=== PATIENT | male | born 1985 | race Caucasian/White ===

== ENCOUNTER 2016-11-14 22:25 | Emergency (ER) | payer MEDICAID ==
[~2016-11-14] VITALS: Ht 177.8 cm; Wt 77.3 kg
[2016-11-14 22:33] VITALS: Ht 177.8 cm; Wt 77.3 kg
[2016-11-14] MEDS ORDERED: ACETAMINOPHEN 325/HYDROC 7.5 15 ML CUP PO ONE (23:00)
[2016-11-15] MEDS ORDERED: IBUP800T25 PO (00:23)
[2016-11-15] MEDS ORDERED: METH-70 PO (00:23)
[2016-11-15] MEDS ORDERED: HYDR-902 PO (00:23)
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
[2016-11-15 01:24] VITALS: BP 134/77; PULSE 73; RESP 18
== END 2016-11-15 01:24 | disposition home or self-care (01) ==
LOC: E/R 22:25
DX: S16.1XXA Strain of muscle, fascia and tendon at neck level, initial encounter (principal); R40.2252 Coma scale, best verbal response, oriented, at arrival to emergency department; R40.2362 Coma scale, best motor response, obeys commands, at arrival to emergency department; R40.2142 Coma scale, eyes open, spontaneous, at arrival to emergency department; V49.40XA Driver injured in collision with unspecified motor vehicles in traffic accident, initial encounter
CPT/HCPCS: 72040; Z7502; Z7610

== ENCOUNTER 2017-05-15 12:02 | Emergency (ER) | payer MEDICAID ==
[~2017-05-15] VITALS: Ht 170.2 cm; Wt 78.0 kg
[~2017-05-15 12:02] MED LIST: HYDR-902 PO; IBUP800T25 PO; METH750T93 PO
[2017-05-15 12:03] VITALS: Ht 170.2 cm; Wt 78.0 kg
[2017-05-15] MEDS ORDERED: IBUP-1542 PO (12:57)
--- NOTE | 2017-05-15 16:25 | ERD ---
ER Documentation Chief Complaint Date/Time DATE: 05/15/17 TIME: 16:19 Chief Complaint chest pain x 3 days HPI 31-year-old male complaining of chest pain 3 days. Patient stated the pain had gradual onset, feels pressure-like. Pain is constant. He has associated shortness of breath. Patient states that he does feel anxious at times. Patient also complaining of left forearm and left wrist pain for several months. 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 The pain is worse with certain movements. Denies fever or chills. Denies injury. ROS All systems reviewed and are negative except as per history of present illness. Medications Home Meds Active Scripts Ibuprofen* (Motrin*) 600 Mg Tab, 600 MG PO Q6H Y for PAIN AND OR ELEVATED TEMP, #30 TAB Prov:ANTOINETTE WALLACE. BEAM SAW OPERATOR 05/15/17 Hydrocodone/Acetaminophen ([place] 10-325 Tablet) 1 Each Tablet, 1 TAB PO Q6H Y for PAIN, #20 TAB Prov:KELLIE GARZASTJOSE ANGELS A. DO 11/15/16 Methocarbamol* (Robaxin*) 750 Mg Tablet, 750 MG PO TID, #30 TAB Prov:LEKKOS,APOSTOLOS A. DO 11/15/16 Ibuprofen* (Motrin*) 800 Mg Tab, 800 MG PO Q6H Y for PAIN AND OR ELEVATED TEMP, #30 TAB Prov:LEKKOS,APOSTOLOS A. DO 11/15/16 Allergies Allergies: Coded Allergies: No Known Allergy (Unverified , 11/14/16) PMhx/Soc History of Surgery: No Anesthesia Reaction: No Hx Neurological Disorder: No Hx Respiratory Disorders: No Hx Cardiac Disorders: No Hx Psychiatric Problems: No Hx Miscellaneous Medical Probl: No Hx Alcohol Use: Yes (occasionally) Hx Substance Use: No Hx Tobacco Use: No Smoking Status: Never smoker Physical Exam Vitals Vital Signs Date Time Temp Pulse Resp B/P Pulse Ox O2 Delivery O2 Flow Rate FiO2 05/15/17 12:03 98.6 82 18 136/75 98 Physical Exam General: Well-developed, well-nourished, conscious and coherent, in no distress Skin: Warm and dry without rash, good texture and turgor Head: Normocephalic without evidence of trauma Eyes: Sclera and conjunctivae normal; pupils equal, round, and reactive to light; extraocular movements are intact Chest: Normal AP diameter. Good expansion without retractions. Nontender. Lungs are clear to auscultate bilaterally with good tidal volume. Anterior chest wall tenderness on palpation. Heart: Regular rate and rhythm. No murmur, rub, or gallops heard Extremities: Full range of motion. Good strength bilaterally. No clubbing, cyanosis, or edema. Peripheral pulses are intact. Sensation intact. Slight tenderness at the ulnar aspect of the right wrist, and proximal lateral left forearm. Neuro: Alert and oriented 4, GCS 15. Cranial nerves grossly intact. Motor and sensory exams nonfocal. Moves all extremities. Speech clear. Gait normal Procedures/MDM Well-appearing 31-year-old male present ED was chest pain 3 days. EKG: Normal sinus rhythm rate 82 bpm, normal axis. No ST segment elevation or depression. No ectopic beats. No QT prolongation. No other EKG abnormalities. EKG read by Dr. Leigh. Low suspicion for acute coronary syndrome, aortic dissection, pneumonia, pneumothorax, or PE. Patient has reproducible chest wall tenderness to palpation. Likely patient chest pain was from costochondritis. Patient is well to be discharged home for outpatient management. Patient also complains of left forearm and left wrist pain. Likely pain is due to his tendinitis secondary to repetitive stress at work. I doubt fractures or dislocations. Patient is advised to avoid heavy lifting or perform tasks that causes his pain. Patient appears well, stable for discharge and outpatient management. Medical decision making shared with patient and family. Education provided to patient and family. Patient and family expressed understanding of the plan. Medications on discharge: Ibuprofen. Follow-up: Primary care provider in 2-3 days or return to ED if worse. Disclaimer: Inadvertent spelling and grammatical errors are likely due to EHR/ dictation software use and do not reflect on the overall quality of patient care. Also, please note that the electronic time recorded on this note does not necessarily reflect the actual time of the patient encounter. Departure Diagnosis: Primary Impression: Chest wall pain Additional Impression: Tendonitis Condition: Stable Patient Instructions: Chest Wall Pain, Costochondritis, Tendonitis Ref[facility]: [facility] Usted se alanis hecho un examen mdico de control que le indica que no est en ciara condicin que requiera tratamiento urgente en el Departamento de Emergencia. Un estudio ms profundo y el tratamiento de raymond condicin pueden esperar sin ningn riesgo hasta que usted sea atendida/o en el consultorio de raymond mdico o ciara cl vidhya. Es responsabilidad suya arreglar ciara miladys para el seguimiento del jamila. MANEJO DE CONDICIONES NO URGENTES EN EL FUTURO 1) Si usted tiene un mdico de atencin primaria: Usted debera llamar a raymond mdico de atencin primaria antes de venir al departamento de emergencia. Despus de las horas de consultorio, raymond doctor o raymond asociado/a est disponible por telfono. El mdico o enfermero de juan en el servicio telefnico puede asesorarle por meghan medio para atender el problema, o jamila contrario se puede programar ciara miladys. 2) Si usted no tiene un mdico de atencin primaria: Llame al mdico o clnica de referencia que aparece abajo sherman las horas de consultorio para hacer ciara miladys para que le vean. CLINICAS: [facility] [phone] [facility] [facility] [phone] [facility]. [facility] [phone] [facility]. [place] [phone] [facility] [place] [id number] [phone] [facility]. [phone] [address] Additional Instructions: Llame al doctor MAANA y merry ciara MILADYS PARA DENTRO DE 2-3 HARP.Dgale a la secretaria que nosotros le instruimos hacer esta miladys.Avise o llame si raymond condicin se empeora antes de la miladys. Regresa aqui si peor o no mejor. ANTOINETTE WALLACE. DAVID May 15, 2017 16:25
== END 2017-05-15 13:08 | disposition home or self-care (01) ==
LOC: FTE 12:02
DX: R07.89 Other chest pain (principal); R40.2412 Glasgow coma scale score 13-15, at arrival to emergency department
CPT/HCPCS: 93005; Z7502; 99283